=== PATIENT | female | born 1975 | race American Indian/Alaskan Native ===

== ENCOUNTER 2017-10-29 15:05 | Inpatient (IN) | payer MEDICAID ==
[2017-10-29] MEDS ORDERED: PITOCin/NS 20 UNIT/1000ML DRIP 20,000 MILLIUNITS/1,000 ML BAG IV ONE ×3 (15:10→18:20)
--- NOTE | 2017-10-29 16:29 | History and Physical Report ---
History of Present Illness Date of examination: 10/29/17 Date of admission: 10/29/17 15:06 Chief complaint: active labor History of present illness: 42y/o @term presents via EMS in active labor with advanced cervical dilatation of 10 cm. The patient has not had any care during her . Her estimated gestational age is unknown as is her GBS status. Past History Past Medical History: no pertinent history Past Surgical History: no surgical history Review of Systems Ears, nose, mouth and throat: other (poor dental hygiene) Genitourinary: leakage of fluid, pelvic pain, contractions - Physical Exam Breasts: Positive: deferred Cardiovascular: Regular rate Lungs: Positive: Clear to auscultation Abdomen: Positive: normal appearance Results All other labs normal. Assessment and Plan - Patient Problems (1) Advanced maternal age (AMA), 40 years or greater Current Visit: Yes Status: Acute Plan to address problem: Admit to labor and delivery Anticipate a vaginal delivery will not be able to obtain GBS coverage (2) No care in current Current Visit: Yes Status: Acute (3) Grand multiparity Current Visit: Yes Status: Acute
--- NOTE | 2017-10-29 16:36 | Procedure Note ---
OB Delivery Note - Delivery Date of Delivery: 10/29/17 Surgeon: FABI HAMEED Estimated blood loss: <100cc - Vaginal Delivery presentation: vertex Delivery position: OA Intrapartum events: no care Delivery monitor: external FHT Route of delivery: Delivery placenta: spontaneous Delivery cord: 3 umbilical vessels Episiotomy: none Delivery laceration: none Anesthesia: none Delivery comments: The patient progressed to complete complete +2 and post deliver a liveborn female infant with Apgars of 9 and 9 weight 5 lbs. 13 oz. After delivery of the head the shoulders delivered without difficulty. The cord was clamped and cut 2 and the infant was placed warmer. The placenta delivered spontaneously intact with a three-vessel cord. The patient sustained no lacerations. Estimated blood loss was 100 mL. - Infant A at 1 minute: 9 at 5 minutes: 9 Infant Gender: Female (5pounds 13 ounces)
[2017-10-29] MEDS ORDERED: LANSINOH TP PRN (17:15)
[2017-10-29] MEDS ORDERED: BENADRYL PO PRN (17:15)
[2017-10-29] MEDS ORDERED: PHENERGAN PR PRN (17:15)
[2017-10-29] MEDS ORDERED: ZOFRAN IV PRN (17:15)
[2017-10-29] MEDS ORDERED: DULCOLAX PR PRN (17:15)
[2017-10-29] MEDS ORDERED: TYLENOL PO PRN (17:15)
[2017-10-29] MEDS ORDERED: TUCKS PAD TP PRN (17:15)
[2017-10-29] MEDS ORDERED: MILK OF MAGNESIA PO PRN (17:15)
[2017-10-29] MEDS ORDERED: PHENERGAN PO PRN (17:15)
[2017-10-29] MEDS ORDERED: SODIUM CHLORIDE FLUSH SYRINGE 10 ML IV NR (18:00)
[2017-10-29 18:27] LABS: Amphetamine Screen,Urine PRESUMPTIVE NEGATIVE; Benzodiazepines Screen,Urine PRESUMPTIVE NEGATIVE; Cannabinoid Screen,Urine PRESUMPTIVE NEGATIVE; Cocaine Screen,Urine PRESUMPTIVE NEGATIVE; Methadone Screen,Urine PRESUMPTIVE NEGATIVE; Opiate Screen,Urine PRESUMPTIVE NEGATIVE
[2017-10-29 18:46] LABS: Hepatitis C Virus Antibody Non-Reactive (NonReactive)
[2017-10-29 18:48] LABS: Rubella IgG Antibody Immune (Immune)
[2017-10-29] MEDS: MOTRIN PO SCH ×2 (20:09→23:33)
[2017-10-29] MEDS: NORCO 5/325 PO PRN (23:36)
[2017-10-30 04:16] LABS: Hematocrit 32.4 % (30.3-42.9); Hemoglobin 11.1 gm/dl (10.1-14.3)
[2017-10-30] MEDS: MOTRIN PO SCH ×4 (05:38→23:32)
--- NOTE | 2017-10-30 13:15 | Progress Note ---
Assessment and Plan - Patient Problems (1) Advanced maternal age (AMA), 40 years or greater Current Visit: Yes Status: Acute Plan to address problem: Routine care (2) No care in current Current Visit: Yes Status: Acute (3) Grand multiparity Current Visit: Yes Status: Acute Subjective - Subjective Date of service: 10/30/17 Interval history: The patient is without any significant complaints. She reports that her pain is being well controlled. Patient reports: appetite normal, voiding normally, pain well controlled [place]: doing well Objective - Vital Signs Latest vital signs: Vital Signs Temp Pulse Resp BP BP Pulse Ox 10/30/17 08:10 98.3 F 45 L 94/54 10/30/17 01:30 98.3 F 64 20 126/61 98 10/29/17 23:36 18 10/29/17 20:44 98.9 F 53 L 20 130/52 98 10/29/17 20:09 18 10/29/17 18:45 98.5 F 70 16 106/54 98 10/29/17 18:21 67 95/52 10/29/17 18:06 63 96/54 10/29/17 17:51 75 105/55 10/29/17 17:36 69 103/53 10/29/17 17:22 58 L 110/59 Intake and Output 10/29/17 10/30/17 10/30/17 22:59 06:59 14:59 Other: Weight 70.307 kg Estimated Blood Loss 300 - Exam Uterus: Present: normal, firm
--- NOTE | 2017-10-30 13:18 | Discharge Summary ---
Providers - Providers Date of Admission: 10/29/17 15:06 Date of discharge: 10/31/17 Attending physician: JOSE LUIS MALLOY Primary care physician: JOSE LUIS MALLOY Hospitalization Reason for admission: active labor Delivery: Discharge diagnosis: IUP at term delivered [place] baby: female Hospital course: The patient was admitted via EMS in active labor with advanced cervical dilatation of 10 cm. The patient had not received any care during the . The patient had a spontaneous vaginal delivery. The ampulla was observed for 48 hours secondary to no GBS coverage. Her course was uneventful. Condition at discharge: Good Disposition: DC-01 TO HOME OR SELFCARE - Discharge Diagnoses (1) Advanced maternal age (AMA), 40 years or greater Status: Acute (2) No care in current Status: Acute (3) Grand multiparity Status: Acute Plan - Discharge Medications Prescriptions: Ibuprofen [Motrin] 800 mg PO Q8HR PRN #60 tablet PRN Reason: Pain, Mild (1-3) - Provider Discharge Summary Activity: no sex for 6 weeks, no heavy lifting 4 weeks, no strenuous exercise Diet: routine Instructions: routine Additional instructions: [] Smoking cessation referral if applicable(refer to patient education folder for contact #) [] Refer to [facility] Booklet Call your doctor immediately for: * Fever > 100.5 * Heavy vaginal bleeding ( >1 pad per hour) * Severe persistent headache * Shortness of breath * Reddened, hot, painful area to leg or breast * Scheduled visit in 4 weeks - Follow up plan
[2017-10-30] MEDS: NORCO 5/325 PO PRN ×2 (15:22→23:27)
[2017-10-31] MEDS: MOTRIN PO SCH ×3 (05:18→19:40)
[2017-10-31 18:44] VITALS: BP 128/68
== END 2017-10-31 21:30 | disposition home or self-care (01) | DRG 775 ==
LOC: TRG 15:05 → LD 15:06 → OB 18:58
PROVIDERS: ADMIT Obstetrics & Gynecology; ATTEND Obstetrics & Gynecology
PROC: 10E0XZZ Delivery of Products of Conception, External Approach (ICD-10-PCS; principal; 2017-10-29)
DX: O62.3 Precipitate labor (principal); Z3A.00 Weeks of gestation of pregnancy not specified; Z37.0 Single live birth
CPT/HCPCS: 36415; 80307; 85014; 85018; 85660; 86592; 86706; 86762; 86803; 86850; 86870; 86900; 86901; 87806; 99211; G0463; J2590